=== PATIENT | male | born 1945 | race Caucasian/White ===

== ENCOUNTER 2022-08-18 14:05 | Inpatient (IN) ==
--- NOTE | 2022-08-18 14:11 | ED Triage Note ---
Date of Service August 18, 2022 History of Present Illness This patient was briefly evaluated while in triage. An abbreviated physical exam was performed. This patient is a 77-year-old Male who presents to the ED for evaluation of hyponatremia found on preoperative labs. Patient is planning to undergo urethro bhanu with Dr. Burt. He denies headache, confusion, chest pain, SOB, abdominal pain. Denies being on a diuretic. Physical Exam Constitutional: alert and oriented x3. no acute distress. HEENT: normocephalic, atraumatic. normal conjunctiva.PERRLA. EOM's grossly intact. Respiratory: lungs are clear to auscultation without wheezes, rhonchi, or rales bilaterally. equal chest rise. normal respiratory effort, no accessory muscle use. Cardiovascular: normal heart sounds without murmur. regular rate and rhythm. GI: abdomen is soft, nontender. No palpable masses. No rebound tenderness or guarding. MSK: moves all 4 extremities spontaneously Psych:appropriate mood and affect. Initial orders for labs and / or imaging were placed and patient was placed in the waiting area until a bed is available. Please see further documentation for the full ED course.
--- NOTE | 2022-08-18 14:53 | Emergency Department Note ---
Impression & Plan Acute hyponatremia ADMIT ED Provider Note HPI: The patient is a 77-year-old gentleman with history of urethral strictures, presents the emergency department with a chief complaint of abnormal outpatient lab work. Patient states he was obtaining lab work for upcoming procedure for direct visual internal urethrotomy procedure by Dr. Burt of urology, he states he was contacted today in regards to his lab work saying that his sodium was "critically low". On arrival here to the ED the patient states he overall feels well. He has had intermittent issues with urinary retention secondary to his underlying strictures. He states he was able to urinate today at about 10 AM without much problem. Patient is otherwise hemodynamically stable on arrival, he is afebrile on arrival. ROS: - Per HPI *Outpatient medications and allergy history reviewed. *Pertinent external medical records reviewed. PE: General: Alert HEENT: Normocephalic, trachea midline Eyes: Extraocular eye movement is intact, no scleral erythema Pulmonary: Clear to auscultation bilaterally, no wheezing Cardio: Regular rate and rhythm GI: Abdomen is soft to palpation : No suprapubic tenderness MSK: No evidence of trauma or malformation of the extremities, no edema Skin: No evidence of rash Neuro: Alert, no focal deficits Psychiatric: Cooperative hall monitor: (As interpreted by myself): - An order was placed for continuous cardiac monitoring - Patient was noted to be in sinus rhythm with a rate of 51 EKG: (As interpreted by myself): Rate: 51 Rhythm: Sinus bradycardia Intervals: Within normal limits ST changes: No ST elevation Time: 1508 Medical Decision Making: Patient presented to the emergency department with a chief complaint of abnormal outpatient lab work. Patient states his sodium was "critically low" and he was advised by his PCPs office to come to the emergency department to be assessed. Patient denies any history of hyponatremia. On arrival here in the ED the patient otherwise appears well, he is in no acute distress, states he has had some issues with urinary retention recently but otherwise denies any symptoms. IV was established and lab work obtained, patient was maintained on cardiac rehabilitation specialist, lab work shows no leukocytosis, hemoglobin is slightly low at 12.1 which is near the patient's baseline, platelet count is within normal limits, CMP does show evidence of hyponatremia at 125, chloride is also low at 94, no evidence of acute kidney injury, serum Osmo is low at 266. Patient was able to provide a urine sample here in the ED although he states it was slightly reduced in stream/volume. This does not show any evidence of infection. We will send for urinalysis. Patient does state he has a history of urethral strictures and is currently being assessed for outpatient surgery with urology service. On my reassessment the patient otherwise appears well, he is not noted to be on any diuretics, unclear source for his hyponatremia at this time and given this patient will be admitted to the hospital for further work-up/management. Patient is in agreement to this plan. [facility] hospitalist service was consulted for admission and the patient was placed for admission in stable condition. Consultants: [facility] Hospitalist service, Dr. Brian Disposition discussion held by myself with: Patient and at bedside Diagnosis: 1. Hyponatremia, acute 2. 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 Hx of gastroesophageal reflux (GERD) Hypertension Lower urinary tract symptoms Surgical History H/O umbilical hernia repair History of bladder surgery repair of "bladder neck" d/t blockage History of colonoscopy History of cystoscopy History of tonsillectomy History of tooth extraction Family History Mother Hypertension Father Heart disease Other No family history of adverse response to anesthesia Social History Smoking Status: Never smoker Second Hand Exposure: Yes (as a child); Hx Alcohol Use: Yes Alcohol type: beer Preferred Language: Greek 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: No Beliefs That Will Affect Care: None marital status: Current Living Situation: Spouse current occupational status: retired Feels Safe at Home: Yes Assistive Devices: Glasses Allergies Allergies Allergy/AdvReac Type Severity Reaction Status Date / Time No Known Allergies Allergy Verified 08/18/22 16:41 Home Meds Home Medications Medication Instructions Recorded Confirmed budesonide-formoterol HFA 160 2 puff inhalation BID 06/26/22 08/18/22 mcg-4.5 mcg/actuation aerosol inhaler (Symbicort) montelukast 10 mg tablet 10 mg PO QPM 06/26/22 08/18/22 albuterol sulfate 90 mcg/actuation 2 inh inhalation Q4H PRN sob 08/15/22 08/18/22 breath activated powder inhaler,sensor doxepin 25 mg capsule 25 mg PO HS 08/15/22 08/18/22 cephalexin 500 mg capsule 500 mg PO BID 08/18/22 08/18/22 diltiazem HCl 300 mg 300 mg PO DAILY 08/18/22 08/18/22 capsule,extended release 24 hr lisinopril 20 mg tablet 20 mg PO QAM 08/18/22 08/18/22 multivitamin 0 tab PO DAILY 08/18/22 08/18/22 psyllium 1 packet PO DAILY PRN Constipation 08/18/22 08/18/22 Results & Data (ED) Vital Signs Vital Signs - 24 hr 08/18/22 14:10 08/18/22 15:21 08/18/22 15:13 Temperature 36.4 C L Temperature Source Temporal Artery Scan Pulse Rate 63 52 L Pulse Rate [Right Apical] 52 L Pulse Rate from SpO2 Sensor Respiratory Rate 18 20 Respiratory Effort / Characteristics Non-Labored Spontaneous Non-Labored Spontaneous Respiratory Depth Normal Normal Respiratory Pattern Regular Regular Blood Pressure 125/67 Blood Pressure [Right Arm] 135/72 Blood Pressure Mean 86 Blood Pressure Mean [Right Arm] 93 Blood Pressure Position Sitting Pulse Oximetry 97 97 Oxygen Delivery Method Room Air Room Air Sepsis Recent Fever Within 48 Hours No Sepsis New/Unexplained Change in Mental Status N/A Sepsis Action Taken by Nursing No Action Required 08/18/22 16:00 08/18/22 17:04 08/18/22 18:00 Temperature Temperature Source Pulse Rate 49 L 49 L 48 L Pulse Rate [Right Apical] Pulse Rate from SpO2 Sensor 49 L Respiratory Rate 21 20 15 Respiratory Effort / Characteristics Respiratory Depth Respiratory Pattern Blood Pressure 144/74 H 158/75 H 144/78 H Blood Pressure [Right Arm] Blood Pressure Mean 97 102 100 Blood Pressure Mean [Right Arm] Blood Pressure Position Pulse Oximetry 99 100 100 Oxygen Delivery Method Room Air Room Air Room Air Sepsis Recent Fever Within 48 Hours Sepsis New/Unexplained Change in Mental Status Sepsis Action Taken by Nursing Laboratory Data 08/18/22 15:11 08/18/22 15:11 Lab Results 08/18/22 08/18/22 08/18/22 Range/Units 15:11 15:11 15:11 WBC 5.78 (4.8-10.8) K/ul RBC 3.76 L (4.70-6.10) M/uL Hgb 12.1 L (14.0-18.0) g/dl Hct 34.3 L (42.0-52.0) % MCV 91.2 (80.0-100.0) fL MCH 32.2 (25.0-34.0) pg MCHC 35.3 (32.0-36.0) g/dL RDW Std Deviation 41.1 (36.4-46.3) fL RDW Coeff of Tony 12.3 (11.5-14.5) % Plt Count 298 (130-400) K/uL MPV 8.8 L (9.4-12.4) fL Immature Gran % (Auto) 0.3 % Neut % (Auto) 68.1 % Lymph % (Auto) 20.8 % [place] % (Auto) 8.7 % Eos % (Auto) 1.4 % Baso % (Auto) 0.7 % Neut # (Auto) 3.94 (1.40-6.50) K/uL Lymph # (Auto) 1.20 (1.2-3.4) K/uL [place] # (Auto) 0.50 (0.11-0.59) K/uL Eos # (Auto) 0.08 (0-0.50) K/uL Baso # (Auto) 0.04 (0-0.2) K/uL Immature Gran # (Auto) 0.02 (0.01-0.20) K/uL Sodium 125 L (136-145) mmol/L Potassium 4.6 (3.5-5.1) mmol/L Chloride 94 L (98-107) mmol/L Carbon Dioxide 25 (21-32) mmol/L Anion Gap 6 (3-11) BUN 19 (6-23) mg/dl Creatinine 0.75 (0.6-1.4) mg/dl Est Cr Clr Drug Dosing 89.2 ml/min Est GFR ( Amer) 103.3 ml/min Est GFR (Non-Af Amer) 89.1 ml/min BUN/Creatinine Ratio 25.3 H (10-20) Glucose 99 (70-99(Fasting)) mg/dl Osmolality 266 L (280-300) mOsm/kg Calcium 9.3 (8.6-10.3) mg/dl Total Bilirubin 0.5 (0.2-1.0) mg/dl AST 19 (13-39) U/L ALT 11 (7-52) U/L Alkaline Phosphatase 58 (34-104) U/L Total Protein 6.7 (6.0-8.3) gm/dl Albumin 4.4 (3.4-5.0) gm/dl Globulin 2.3 L (2.5-4.0) gm/dl Albumin/Globulin Ratio 1.9 (0.9-2) Urine Color Urine Appearance (Clear) Urine pH (4.5-7.5) Ur Specific [place] (1.000-1.030) Urine Protein (Negative) Urine Glucose (UA) (Negative) Urine Ketones (Negative) Urine Blood (Negative) Urine Nitrite (Negative) Urine Bilirubin (Negative) Urine Urobilinogen (Negative) Ur Leukocyte Esterase (Negative) Urine Osmolality (500-800) mOsm/kg SARS-CoV-2, RNA, NAAT (NEGATIVE) 08/18/22 08/18/22 08/18/22 Range/Units 15:19 15:19 17:01 WBC (4.8-10.8) K/ul RBC (4.70-6.10) M/uL Hgb (14.0-18.0) g/dl Hct (42.0-52.0) % MCV (80.0-100.0) fL MCH (25.0-34.0) pg MCHC (32.0-36.0) g/dL RDW Std Deviation (36.4-46.3) fL RDW Coeff of Tony (11.5-14.5) % Plt Count (130-400) K/uL MPV (9.4-12.4) fL Immature Gran % (Auto) % Neut % (Auto) % Lymph % (Auto) % [place] % (Auto) % Eos % (Auto) % Baso % (Auto) % Neut # (Auto) (1.40-6.50) K/uL Lymph # (Auto) (1.2-3.4) K/uL [place] # (Auto) (0.11-0.59) K/uL Eos # (Auto) (0-0.50) K/uL Baso # (Auto) (0-0.2) K/uL Immature Gran # (Auto) (0.01-0.20) K/uL Sodium (136-145) mmol/L Potassium (3.5-5.1) mmol/L Chloride (98-107) mmol/L Carbon Dioxide (21-32) mmol/L Anion Gap (3-11) BUN (6-23) mg/dl Creatinine (0.6-1.4) mg/dl Est Cr Clr Drug Dosing ml/min Est GFR ( Amer) ml/min Est GFR (Non-Af Amer) ml/min BUN/Creatinine Ratio (10-20) Glucose (70-99(Fasting)) mg/dl Osmolality (280-300) mOsm/kg Calcium (8.6-10.3) mg/dl Total Bilirubin (0.2-1.0) mg/dl AST (13-39) U/L ALT (7-52) U/L Alkaline Phosphatase (34-104) U/L Total Protein (6.0-8.3) gm/dl Albumin (3.4-5.0) gm/dl Globulin (2.5-4.0) gm/dl Albumin/Globulin Ratio (0.9-2) Urine Color Yellow Urine Appearance Clear (Clear) Urine pH 7.0 (4.5-7.5) Ur Specific [place] 1.020 (1.000-1.030) Urine Protein Negative (Negative) Urine Glucose (UA) Negative (Negative) Urine Ketones Negative (Negative) Urine Blood Negative (Negative) Urine Nitrite Negative (Negative) Urine Bilirubin Negative (Negative) Urine Urobilinogen Negative (Negative) Ur Leukocyte Esterase Negative (Negative) Urine Osmolality 543 (500-800) mOsm/kg SARS-CoV-2, RNA, NAAT NEGATIVE (NEGATIVE) Discharge Plan Visit Data Chief Complaint: Abnormal Labs/Diagnostic Testing Stated Complaint: LOW SODIUM, REF FROM DR CROWLEY ED Provider: Blayne Quinonez Discharge Problem: Acute hyponatremia Forms Stand Alone Forms: My [facility] Prescriptions Prescriptions: No Action budesonide-formoterol [Symbicort] 160-4.5 mcg/actuation HFA aerosol inhaler 2 puff inhalation BID montelukast 10 mg tablet 10 mg PO QPM doxepin 25 mg Capsule 25 mg PO HS albuterol sulfate 90 mcg/actuation Aero Powdr Breath Act W/Sensor 2 inh INHALATION Q4H PRN (Reason: sob) multivitamin Tablet 0 tab PO DAILY Rx Instructions: Patient states that due to his potassium being high he takes 1 tablet by mouth a couple times a week. lisinopril 20 mg tablet 20 mg PO QAM diltiazem HCl 300 mg capsule,extended release 24hr 300 mg PO DAILY cephalexin 500 mg capsule 500 mg PO BID Metamucil Packet 1 packet PO DAILY PRN (Reason: Constipation) Rx Instructions: mix into at least 8 oz of water or juice before administering Referrals Referrals: Aundrea Crowley MD [Primary Care Provider] -
[2022-08-18 15:53] LABS: Basophils # (auto) 0.04 K/uL (0-0.2); Basophils % (auto) 0.7 %; Eosinophils # (auto) 0.08 K/uL (0-0.50); Eosinophils % (auto) 1.4 %; Hematocrit (blood only) 34.3 % (42.0-52.0); Hemoglobin 12.1 g/dl (14.0-18.0); Immature Granulocytes # (auto) 0.02 K/uL (0.01-0.20); Immature Granulocytes % (auto) 0.3 %; Lymphocytes % (auto) 20.8 %; Mean Corpuscular Hemoglobin 32.2 pg (25.0-34.0); Mean Corpuscular Hgb Conc 35.3 g/dL (32.0-36.0); Mean Corpuscular Volume 91.2 fL (80.0-100.0); Mean Platelet Volume 8.8 fL (9.4-12.4); Monocytes % (auto) 8.7 %; Neutrophils # (auto) 3.94 K/uL (1.40-6.50); Neutrophils % (auto) 68.1 %; Platelet Count 298 K/uL (130-400); RDW Coefficient of Variation 12.3 % (11.5-14.5); RDW Standard Deviation 41.1 fL (36.4-46.3); Red Blood Count 3.76 M/uL (4.70-6.10); White Blood Count 5.78 K/ul (4.8-10.8)
[2022-08-18 16:06] LABS: Albumin Globulin Ratio 1.9 (0.9-2); Albumin Level 4.4 gm/dl (3.4-5.0); BUN Creatinine Ratio 25.3 (10-20); Bilirubin,Total 0.5 mg/dl (0.2-1.0); Calcium 9.3 mg/dl (8.6-10.3); Creatinine Clr Calc Pharmacy 89.2 ml/min; Est GFR (African American) 103.3 ml/min; Est GFR (Non-African American) 89.1 ml/min; Globulin 2.3 gm/dl (2.5-4.0); Potassium 4.6 mmol/L (3.5-5.1); Total Protein 6.7 gm/dl (6.0-8.3)
[2022-08-18 16:06] LABS: Appearance Urine Clear (Clear); Bilirubin Urine Negative (Negative); Blood Urine Negative (Negative); Color Urine Yellow; Glucose Urine UA Negative (Negative); Ketones Urine Negative (Negative); Leukocyte Esterase Urine Negative (Negative); Nitrite Urine Negative (Negative); Protein Urine Negative (Negative); Urobilinogen Urine Negative (Negative)
--- NOTE | 2022-08-18 18:34 | History & Physical Report ---
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 (Na level was 133 in 05/30/22) Urine sodium normal and serum osmolarity low Will check Urine Na Will place on fluid restriction with 1.5 L daily Will consult nephrology Continue monitor BMP Urethral stricture: Bladder neck contracture: Schedule for DVIU procedure on 08/[address] Burt Will complete 2 more days course of Keflex that was started by urology. Bradycardia Asymptomatic Currently on Cardizem 300mg If bradycardia worsening, might consider to decrease cardizem dose Continue monitor closely HTN Continue cardizem and Lisinopril Continue monitor BMP Constipation Continue Metamucil prn Asthma Continue Symbicort DVT px on lovenox subq Code status full code History of Present Illness Chief Complaint: Hyponatremia Primary Care Provider: Aundrea Crowley MD 77 male with past medical history of SIADH, hypertension, asthma, ureteral stri cture, constipation, essential tremor was sent to the ED due to abnormal lab for low sodium. Pt said that he had a call from his doctor for Na level 125 that was drawn on 08/15. Pt said that he was told to drink alot of water to help him urinate. He said back in May his sodium was 133 and he was told to limit his fluid intake. he said that he went from fluid restriction to drink excessive amount of water. said that he had history of low sodium, but his Na never dropped that low. He said that he does not have any symptoms that he feels fine. He said that he is scheduled for urology procedure on 08/[address] Burt for DVIU (direct visual urethrotomy) procedure. He said that he was starting on Keflex on 08/13 by the urology to complete 7 days course. Denues any chest pain, palpitation, dizziness and SOB. Allergies Allergy/AdvReac Type Severity Reaction Status Date / Time No Known Allergies Allergy Verified 08/18/22 16:41 Home Medications Medication Instructions Recorded Confirmed Type budesonide-formoterol HFA 160 2 puff inhalation BID 06/26/22 08/18/22 History mcg-4.5 mcg/actuation aerosol inhaler (Symbicort) montelukast 10 mg tablet 10 mg PO QPM 06/26/22 08/18/22 History albuterol sulfate 90 mcg/actuation 2 inh inhalation Q4H PRN sob 08/15/22 08/18/22 History breath activated powder inhaler,sensor doxepin 25 mg capsule 25 mg PO HS 08/15/22 08/18/22 History cephalexin 500 mg capsule 500 mg PO BID 08/18/22 08/18/22 History diltiazem HCl 300 mg 300 mg PO DAILY 08/18/22 08/18/22 History capsule,extended release 24 hr lisinopril 20 mg tablet 20 mg PO QAM 08/18/22 08/18/22 History multivitamin 0 tab PO DAILY 08/18/22 08/18/22 History psyllium 1 packet PO DAILY PRN Constipation 08/18/22 08/18/22 History Past Med/Surg History Medical History (Updated 08/19/22 @ 17:52 by Becky Meza DO) Anxiety "fear of medical testing" Asthma has not used rescue inhaler for a while>daily inhaler controlling Bradycardia Chronic constipation Hearing deficit History of skin cancer 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 Hx of gastroesophageal reflux (GERD) Hypertension Hyponatremia Lower urinary tract symptoms Surgical History H/O umbilical hernia repair History of bladder surgery repair of "bladder neck" d/t blockage History of colonoscopy History of cystoscopy History of tonsillectomy History of tooth extraction Family History Mother Hypertension Father Heart disease Other No family history of adverse response to anesthesia Social History Smoking Status: Never smoker Second Hand Exposure: Yes (as a child); Hx Alcohol Use: Yes Alcohol type: beer Hx Substance Use: No Preferred Language: Barbadian Communication Ability: Effective Air Quality Specialist Required: No Beliefs That Will Affect Care: None marital status: Current Living Situation: Spouse Current Living Situation Comment: Home with current occupational status: retired Feels Safe at Home: Yes Assistive Devices: None Review of Systems Review of Systems: All systems reviewed & are unremarkable except as noted in HPI & below Physical Exam Physical Exam: General- No acute distress Head- atraumatic Eyes- PERRL, EOMI, ENT- oropharynx clear Neck- supple, no JVD Lungs- clear to auscultation Heart- regular rhythm; no murmur Abdomen- normal bowel sounds, soft, nontender Extremities- +edema around both ankle L>R Neuro- alert, oriented x 3; PERRL, EOMI; no facial palsy; no dysarthria Skin- warm & dry Results & Data Results & Data Vital Signs (Past 12 Hours) Vital Signs Temp Pulse Pulse Resp BP BP Pulse Ox 08/18/22 18:00 48 L 15 144/78 H 100 08/18/22 17:04 49 L 20 158/75 H 100 08/18/22 16:00 49 L 21 144/74 H 99 08/18/22 15:13 52 L 08/18/22 15:21 52 L 20 135/72 97 08/18/22 14:10 36.4 C L 63 18 125/67 97 O2 Del Method 08/18/22 18:00 Room Air 08/18/22 17:04 Room Air 08/18/22 16:00 Room Air 08/18/22 15:13 08/18/22 15:21 Room Air 08/18/22 14:10 Room Air Diagnostic Findings Laboratory Results WBC 5.78 K/ul (4.8-10.8) 08/18/22 15:11 RBC 3.76 M/uL (4.70-6.10) L 08/18/22 15:11 Hgb 12.1 g/dl (14.0-18.0) L 08/18/22 15:11 Hct 34.3 % (42.0-52.0) L 08/18/22 15:11 MCV 91.2 fL (80.0-100.0) 08/18/22 15:11 MCH 32.2 pg (25.0-34.0) 08/18/22 15:11 MCHC 35.3 g/dL (32.0-36.0) 08/18/22 15:11 RDW Std Deviation 41.1 fL (36.4-46.3) 08/18/22 15:11 RDW Coeff of Tony 12.3 % (11.5-14.5) 08/18/22 15:11 Plt Count 298 K/uL (130-400) 08/18/22 15:11 MPV 8.8 fL (9.4-12.4) L 08/18/22 15:11 Immature Gran % (Auto) 0.3 % 08/18/22 15:11 Neut % (Auto) 68.1 % 08/18/22 15:11 Lymph % (Auto) 20.8 % 08/18/22 15:11 [place] % (Auto) 8.7 % 08/18/22 15:11 Eos % (Auto) 1.4 % 08/18/22 15:11 Baso % (Auto) 0.7 % 08/18/22 15:11 Neut # (Auto) 3.94 K/uL (1.40-6.50) 08/18/22 15:11 Lymph # (Auto) 1.20 K/uL (1.2-3.4) 08/18/22 15:11 [place] # (Auto) 0.50 K/uL (0.11-0.59) 08/18/22 15:11 Eos # (Auto) 0.08 K/uL (0-0.50) 08/18/22 15:11 Baso # (Auto) 0.04 K/uL (0-0.2) 08/18/22 15:11 Immature Gran # (Auto) 0.02 K/uL (0.01-0.20) 08/18/22 15:11 Sodium 125 mmol/L (136-145) L 08/18/22 15:11 Potassium 4.6 mmol/L (3.5-5.1) 08/18/22 15:11 Chloride 94 mmol/L (98-107) L 08/18/22 15:11 Carbon Dioxide 25 mmol/L (21-32) 08/18/22 15:11 Anion Gap 6 (3-11) 08/18/22 15:11 BUN 19 mg/dl (6-23) 08/18/22 15:11 Creatinine 0.75 mg/dl (0.6-1.4) 08/18/22 15:11 Est Cr Clr Drug Dosing 89.2 ml/min 08/18/22 15:11 Est GFR ( Amer) 103.3 ml/min 08/18/22 15:11 Est GFR (Non-Af Amer) 89.1 ml/min 08/18/22 15:11 BUN/Creatinine Ratio 25.3 (10-20) H 08/18/22 15:11 Glucose 99 mg/dl (70-99(Fasting)) 08/18/22 15:11 Osmolality 266 mOsm/kg (280-300) L 08/18/22 15:11 Calcium 9.3 mg/dl (8.6-10.3) 08/18/22 15:11 Total Bilirubin 0.5 mg/dl (0.2-1.0) 08/18/22 15:11 AST 19 U/L (13-39) 08/18/22 15:11 ALT 11 U/L (7-52) 08/18/22 15:11 Alkaline Phosphatase 58 U/L (34-104) 08/18/22 15:11 Total Protein 6.7 gm/dl (6.0-8.3) 08/18/22 15:11 Albumin 4.4 gm/dl (3.4-5.0) 08/18/22 15:11 Globulin 2.3 gm/dl (2.5-4.0) L 08/18/22 15:11 Albumin/Globulin Ratio 1.9 (0.9-2) 08/18/22 15:11 Urine Color Yellow 08/18/22 15:19 Urine Appearance Clear (Clear) 08/18/22 15:19 Urine pH 7.0 (4.5-7.5) 08/18/22 15:19 Ur Specific [place] 1.020 (1.000-1.030) 08/18/22 15:19 Urine Protein Negative (Negative) 08/18/22 15:19 Urine Glucose (UA) Negative (Negative) 08/18/22 15:19 Urine Ketones Negative (Negative) 08/18/22 15:19 Urine Blood Negative (Negative) 08/18/22 15:19 Urine Nitrite Negative (Negative) 08/18/22 15:19 Urine Bilirubin Negative (Negative) 08/18/22 15:19 Urine Urobilinogen Negative (Negative) 08/18/22 15:19 Ur Leukocyte Esterase Negative (Negative) 08/18/22 15:19 Urine Osmolality 543 mOsm/kg (500-800) 08/18/22 15:19 SARS-CoV-2, RNA, NAAT NEGATIVE (NEGATIVE) 08/18/22 17:01
[2022-08-18] MEDS ORDERED: DOXEPIN HCL 25 MG CAPSULE PO SCH (21:00)
[2022-08-18] MEDS ORDERED: ALBUTEROL HFA 8 GM INHALER INH PRN (21:07)
[2022-08-18] MEDS: cephALEXin 500 MG CAP PO SCH (21:59)
[2022-08-18] MEDS: MONTELUKAST SODIUM 10 MG TABLET PO SCH (22:00)
[2022-08-19] MEDS: MULTIVITAMIN TAB PO SCH (07:56)
[2022-08-19] MEDS: cephALEXin 500 MG CAP PO SCH ×2 (07:56→20:05)
[2022-08-19] MEDS: lisinopril 20 MG TAB PO SCH (07:56)
[2022-08-19] MEDS: dilTIAZem HCL 300 MG CAPCR PO SCH (07:57)
[2022-08-19] MEDS: FLUTICASONE/VILANTEROL 200/25MCG 14 PUFFS/INHALER INH SCH (07:57)
[2022-08-19] MEDS: ENOXAPARIN INJ 40 MG/0.4 ML SYR SQ SCH (07:57)
--- NOTE | 2022-08-19 08:00 | Nephrology Consultation ---
Date of Consultation August 19, 2022 Assessment & Plan (1) Hyponatremia: worsening of chronic hyponatremia w/ presenting sodium 08/18 1500 of 125, stable > 72 hrs. -await am labs >>sNa 130, K 4.6 -continue FR 1.5L -target sNa for this am is about 129-130 >> on target >trial of lasix 10 mg q 48 hrs w/ goal of normalizing sNa as OP IF PATIENT is for DISCHARGE TODAY, recommend -recheck bmp this afternoon >> sNa 129 -d/c home on FR 50 oz daily -lasix 10 mg every 48 hrs -recheck bmp, serum osms, urine osms, urine sodium on 08/22 or 08/25 -hospital d/c appt w/ me in 2 wks >>note below re diltiazem (2) Bradycardia: has not had diltiazem once this admission and HR about 50 uniformly -consider OP cardiology eval re tachy/jerry versus bradycardia -consider holding diltiazem at discharge History of Present Illness Reason for Consultation: hyponatremia Requesting Physician: Dr Brian Attending Physician: Jodie Brian MD History of Present Illness 77 y/o M whom I'm asked to see for hyponatremia was sent to hospital for admission yesterday after OP labs showed sodium 125. PMH includes chronic hyponatremia/SIADH, hypertension, asthma, urethral stricture, constipation, essential tremor, hx of tachycardia. Pt has direct visual urethrotomy scheduled for 08/21 w/ Dr Burt and had been told that if he drank lots of water this would help him urinate well until then. Accordingly he went from a fluid limit of about 64 oz daily to aggressive fluid intake. His serum sodium on 08/15 was 125, same on presentation yesterday 1500. Serum osms 266, urine osms 543, Chris 52. There are not many data points in [employer] or [employer] but sNa x 2 in May 2022 in [place] is 133, 132. Sodium improved to 130 today. HR has been consistently about 50. On evaluation he feels well: denies n/v, worse po intake recently; no edema, no exertional dyspnea or cough; no change in chronic voiding challenges. no confusion. He and his moved here last fall from [place]: he used to hike long distances and describes himself as a big water drinker. used to also have "a few beers at night before dinner" per his who is bedside though not recently. Hyponatremia was apparently diagnosed this spring and attributed to SIADH. he tells me that he considers the 64 oz daily fluid limit imposed at that time to be severe/extreme. He did fall once in the past year, tripped on a trail. Allergies Allergy/AdvReac Type Severity Reaction Status Date / Time No Known Allergies Allergy Verified 08/18/22 16:41 Home Medications Medication Instructions Recorded Confirmed Type budesonide-formoterol HFA 160 2 puff inhalation BID 06/26/22 08/18/22 History mcg-4.5 mcg/actuation aerosol inhaler (Symbicort) montelukast 10 mg tablet 10 mg PO QPM 06/26/22 08/18/22 History albuterol sulfate 90 mcg/actuation 2 inh inhalation Q4H PRN sob 08/15/22 08/18/22 History breath activated powder inhaler,sensor doxepin 25 mg capsule 25 mg PO HS 08/15/22 08/18/22 History cephalexin 500 mg capsule 500 mg PO BID 08/18/22 08/18/22 History diltiazem HCl 300 mg 300 mg PO DAILY 08/18/22 08/18/22 History capsule,extended release 24 hr lisinopril 20 mg tablet 20 mg PO QAM 08/18/22 08/18/22 History multivitamin 0 tab PO DAILY 08/18/22 08/18/22 History psyllium 1 packet PO DAILY PRN Constipation 08/18/22 08/18/22 History Patient History Medical History Anxiety "fear of medical testing" Asthma has not used rescue inhaler for a while>daily inhaler controlling Bradycardia Chronic constipation Hearing deficit History of skin cancer History of tachycardia no mold blower Hx of gastroesophageal reflux (GERD) Hypertension Hyponatremia Lower urinary tract symptoms Surgical History H/O umbilical hernia repair History of bladder surgery repair of "bladder neck" d/t blockage History of colonoscopy History of cystoscopy History of tonsillectomy History of tooth extraction Family History Mother Hypertension Father Heart disease Other No family history of adverse response to anesthesia Social History Smoking Status: Never smoker Second Hand Exposure: Yes (as a child); Hx Alcohol Use: Yes Alcohol type: beer Hx Substance Use: No Preferred Language: Spanish Communication Ability: Effective [employer] Reading Teacher Required: No Beliefs That Will Affect Care: None marital status: Current Living Situation: Spouse Current Living Situation Comment: Home with current occupational status: retired Feels Safe at Home: Yes Assistive Devices: None Review of Systems Review of Systems: All systems reviewed & are unremarkable except as noted in HPI & below Physical Exam Constitutional: well developed, well nourished and cooperative; no acute distress Eyes: EOM intact bilaterally ENMT: Ears: no external ear abnormality Nose: no external nose abnormality Mouth: oral mucous membranes not dry jaw tremor Neck: no nuchal rigidity Respiratory: normal respiratory effort Auscultation: + diminished lung sounds Cardiovascular: RRR, no murmur, no edema Gastrointestinal (Abdomen): Inspection/Auscultation: normal bowel sounds Percussion/Palpation: abdomen soft; abdomen nontender Musculoskeletal: Extremities: strength 5/5 throughout Skin: no rashes, warm and dry Neurologic: ijmenez, fluent speech, no tremor Psychiatric: Orientation: alert and oriented x 3 Speech: normal rate/rhythm/volume of speech Results & Data Vital Signs (Past 12 Hours) Vital Signs Temp Pulse Pulse Resp BP BP Pulse Ox 08/19/22 07:24 36.6 C 49 L 20 121/68 98 08/19/22 07:00 45 L 08/19/22 04:42 67 08/19/22 03:30 36.7 C 92 H 18 125/63 95 08/18/22 23:12 55 L 08/18/22 23:01 36.4 C L 52 L 18 152/78 H 99 08/18/22 22:20 36.6 C 18 167/79 H 97 08/18/22 21:41 51 L 08/18/22 20:40 36.6 C 50 L 18 167/79 H 97 08/18/22 20:17 08/18/22 20:00 49 L 17 146/74 H 100 O2 Del Method 08/19/22 07:24 Room Air 08/19/22 07:00 08/19/22 04:42 08/19/22 03:30 Room Air 08/18/22 23:12 08/18/22 23:01 Room Air 08/18/22 22:20 Room Air 08/18/22 21:41 08/18/22 20:40 Room Air 08/18/22 20:17 Room Air 08/18/22 20:00 Room Air Laboratory Results 08/19/22 07:27 08/19/22 07:27 Diagnostic Findings CXR > osteopenia, no active disease
[2022-08-19 08:17] LABS: Hematocrit (blood only) 33.5 % (42.0-52.0); Hemoglobin 11.6 g/dl (14.0-18.0); Mean Corpuscular Hemoglobin 32.1 pg (25.0-34.0); Mean Corpuscular Hgb Conc 34.6 g/dL (32.0-36.0); Mean Corpuscular Volume 92.8 fL (80.0-100.0); Mean Platelet Volume 8.6 fL (9.4-12.4); Platelet Count 269 K/uL (130-400); RDW Coefficient of Variation 12.3 % (11.5-14.5); Red Blood Count 3.61 M/uL (4.70-6.10); White Blood Count 4.08 K/ul (4.8-10.8)
[2022-08-19 08:31] LABS: BUN Creatinine Ratio 23.5 (10-20); Calcium 8.9 mg/dl (8.6-10.3); Est GFR (African American) 100.1 ml/min; Est GFR (Non-African American) 86.3 ml/min; Magnesium 2.3 mg/dl (1.7-2.4); Potassium 4.6 mmol/L (3.5-5.1)
--- NOTE | 2022-08-19 14:14 | Hospitalist Progress Note ---
Date of Service August 19, 2022 Assessment & Plan (1) Acute hyponatremia: Plan: Pt was sent to the ED due to abnormal lab for low Na (125) possible related to polydipsia vs SIADH He was placed on a fluid restriction with improvement. Nephrology consulted and will give one dose Lasix this evening. Repeat BMP in am. (2) Bladder neck contracture: Plan: known Urethral stricture: Bladder neck contracture: Schedule for DVIU procedure on 08/[address] Burt Will complete 2 more days course of Keflex that was started by urology. Urinary retention may also be caused somewhat by doxepin for insomnia. Will wean this down. Would hold tonight and order 10mg PO qHS dose for two weeks, then stop (3) Bradycardia: Plan: would indefinitely stop diltiazem 2/2 bradycardia, agree with nephrology. Consider outpatient event monitor to evaluate for tachy jerry once off diltiazem. (4) Insomnia: Plan: wean doxepin over two weeks. (5) Chronic constipation: Plan: possibly a side effect of doxepin, supportive care and evaluate any changes in this once off the medication. Lovenox Full Code to home in am. Becky Meza DO [facility] Hospitalist Admission and Anticipated Discharge Date Admission Date: August 18, 2022 Subjective 77-year-old man with a history of chronic bladder outlet obstruction recently was seen by urology and told to increase his water intake Reports has been drinking "excessive" amounts of water and was brought in for a sodium of 125 Today it is 130. Patient feels well and has no symptoms. Bladder scan today reveals slightly north of 200 which is where he has been running He has a urology procedure planned for August 21. is at bedside and we discussed the assessment and plan I checked with Dr. Esposito who has a plan to give him Lasix this evening. Review of Systems Review of Systems: Of systems was otherwise negative except as indicated above Physical Exam Physical Exam: CONSTITUTIONAL: WNWD, vitals as above, generally well-appearing, NAD EYES: normal conjunctivae, no scleral icterus ENT: external ear and nose normal, MMM NECK: trachea midline RESPIRATORY: clear to auscultation bilaterally, no crackles, rales or wheezes, normal respiratory effort CARDIOVASCULAR: regular rate and rhythm, S1 and 2 heard without murmurs, gallops or rubs, no JVD, no peripheral edema, CHEST: inspection of chest was normal GASTROINTESTINAL: soft, nontender, ND, no guarding MUSCULOSKELETAL: strength 5/5 throughout, head is normocephalic and atraumatic, SKIN: warm and dry, no rashes NEUROLOGIC: CN 2-12 grossly intact, no sensory deficit, normal cognition, normal speech, no tremor PSYCHIATRIC: alert cooperative and oriented to person, place and time. Results & Data Results & Data Vital Signs (Past 12 Hours) Vital Signs Temp Pulse Pulse Resp BP Pulse Ox O2 Del Method 08/19/22 11:08 36.4 C L 55 L 17 139/76 98 Room Air 08/19/22 09:36 Room Air 08/19/22 07:24 36.6 C 49 L 20 121/68 98 Room Air 08/19/22 07:00 45 L 08/19/22 04:42 67 08/19/22 03:30 36.7 C 92 H 18 125/63 95 Room Air Laboratory Results Short CBC 08/18/22 08/19/22 Range/Units 15:11 07:27 WBC 5.78 4.08 L (4.8-10.8) K/ul Hgb 12.1 L 11.6 L (14.0-18.0) g/dl Hct 34.3 L 33.5 L (42.0-52.0) % Plt Count 298 269 (130-400) K/uL BMP 08/18/22 08/19/22 15:11 07:27 Sodium 125 L 130 L Potassium 4.6 4.6 Chloride 94 L 97 L Carbon Dioxide 25 29 BUN 19 19 Creatinine 0.75 0.81 Glucose 99 92 Calcium 9.3 8.9 Liver Function 08/18/22 Range/Units 15:11 Total Bilirubin 0.5 (0.2-1.0) mg/dl AST 19 (13-39) U/L ALT 11 (7-52) U/L Alkaline Phosphatase 58 (34-104) U/L Albumin 4.4 (3.4-5.0) gm/dl Urine 08/18/22 Range/Units 15:19 Urine Color Yellow Urine Appearance Clear (Clear) Urine pH 7.0 (4.5-7.5) Ur Specific [place] 1.020 (1.000-1.030) Urine Protein Negative (Negative) Urine Glucose (UA) Negative (Negative) Medications Administered Current Inpatient Medications Albuterol (Albuterol Hfa 8 Gm Inhaler) 2 puffs INH Q4R PRN PRN Reason: Shortness Of Breath Stop: 09/17/22 21:06 Cephalexin HCl (Cephalexin 500 Mg Cap) 500 mg PO BID [facility]; Protocol Stop: 08/20/22 20:59 Last Admin: 08/19/22 07:56 Dose: 500 mg Diltiazem HCl (Diltiazem Hcl 300 Mg Capcr) 300 mg PO DAILY [facility] Stop: 09/18/22 08:59 Last Admin: 08/19/22 07:57 Dose: Not Given Doxepin HCl (Doxepin Hcl 25 Mg Capsule) 25 mg PO HS [facility] Stop: 09/17/22 20:59 Last Admin: 08/18/22 22:00 Dose: 25 mg Enoxaparin Sodium (Enoxaparin Inj 40 Mg/0.4 Ml Syr) 40 mg SQ QAM [facility] Stop: 09/18/22 08:59 Last Admin: 08/19/22 07:57 Dose: 40 mg Fluticasone/Vilanterol (Fluticasone/Vilanterol 200/25mcg 14 Puffs/Inhaler) 1 puffs INH DAILY [facility]; Protocol Stop: 09/18/22 08:59 Last Admin: 08/19/22 07:57 Dose: 1 puffs Lisinopril (Lisinopril 20 Mg Tab) 20 mg PO QAM [facility] Stop: 09/18/22 08:59 Last Admin: 08/19/22 07:56 Dose: 20 mg Montelukast Sodium (Montelukast Sodium 10 Mg Tablet) 10 mg PO QPM [facility] Stop: 09/17/22 20:59 Last Admin: 08/18/22 22:00 Dose: 10 mg Multivitamins (Multivitamin Tab) 1 tab PO QAM [facility] Stop: 09/18/22 08:59 Last Admin: 08/19/22 07:56 Dose: 1 tab
[2022-08-19 16:57] LABS: BUN Creatinine Ratio 28.1 (10-20); Creatinine Clr Calc Pharmacy 76.4 ml/min; Est GFR (African American) 96.3 ml/min; Est GFR (Non-African American) 83.1 ml/min; Potassium 4.6 mmol/L (3.5-5.1)
[2022-08-19] MEDS ORDERED: FUROSEMIDE 20 MG TAB PO ONE (17:38)
[2022-08-19] MEDS: MONTELUKAST SODIUM 10 MG TABLET PO SCH (20:07)
[2022-08-19] MEDS ORDERED: DOXEPIN HCL 10 MG CAPSULE PO SCH (21:00)
[2022-08-19] MEDS: DOCUSATE SODIUM/SENNA 50/8.6MG TAB PO SCH (22:25)
--- NOTE | 2022-08-20 05:53 | Electrocardiogram Report ---
Test Reason : Blood Pressure : / mmHG Vent. Rate : 051 BPM Atrial Rate : 051 BPM P-R Int : 170 ms QRS Dur : 100 ms QT Int : 438 ms P-R-T Axes : 053 -08 041 degrees QTc Int : 403 ms Sinus bradycardia Otherwise normal ECG When compared with ECG of 15-AUG-2022 14:35, No significant change was found Confirmed by Aung Funk ([id number]) on 08/20/2022 5:52:39 AM Referred By: Confirmed By:Aung Funk
[2022-08-20 07:56] LABS: Calcium 8.8 mg/dl (8.6-10.3); Potassium 4.2 mmol/L (3.5-5.1)
[2022-08-20 08:02] LABS: BUN Creatinine Ratio 27.6 (10-20); Creatinine Clr Calc Pharmacy 78.3 ml/min; Est GFR (African American) 97.2 ml/min; Est GFR (Non-African American) 83.8 ml/min
[2022-08-20] MEDS: MULTIVITAMIN TAB PO SCH (08:58)
[2022-08-20] MEDS: DOCUSATE SODIUM/SENNA 50/8.6MG TAB PO SCH (08:59)
[2022-08-20] MEDS: lisinopril 20 MG TAB PO SCH (08:59)
[2022-08-20] MEDS: dilTIAZem HCL 300 MG CAPCR PO SCH (08:59)
[2022-08-20] MEDS: ENOXAPARIN INJ 40 MG/0.4 ML SYR SQ SCH (09:00)
[2022-08-20] MEDS: cephALEXin 500 MG CAP PO SCH (09:00)
[2022-08-20] MEDS: FLUTICASONE/VILANTEROL 200/25MCG 14 PUFFS/INHALER INH SCH (09:00)
--- NOTE | 2022-08-20 09:43 | Communication Note ---
Date of Service: August 20, 2022 Pt for d/c today possibly before I can evaluate him in person. Labs/VS/ meds reviewed; care d/w Dr Andrews UPDATED NEPHRO D/C RECOMMENDATIONS -d/c home on FR 50 oz daily -lasix 10 mg every 48 hrs (BUT PLS DOSE TODAY) -recheck bmp, serum osms, urine osms, urine sodium on 08/22 or 08/25 to be ordered by nephro RN in consultation w/ d/c materials planner -hospital d/c appt w/ me in 2 wks -consider OP cardiology eval re tachy/jerry versus bradycardia >>diltiazem held yesterday d/t asymptomatic bradycardia (HR about 50 consistently); given today w/ HR 63 >> consider lower dose diltiazem at d/c pending cardiology eval
[2022-08-20] MEDS ORDERED: FUROSEMIDE 20 MG TAB PO ONE (12:00)
--- NOTE | 2022-08-20 12:20 | Discharge Summary ---
Date of Service August 20, 2022 Admission HPI Per Admitting Provider 77 male with past medical history of SIADH, hypertension, asthma, ureteral stricture, constipation, essential tremor was sent to the ED due to abnormal lab for low sodium. Pt said that he had a call from his doctor for Na level 125 that was drawn on 08/15. Pt said that he was told to drink alot of water to help him urinate. He said back in May his sodium was 133 and he was told to limit his fluid intake. he said that he went from fluid restriction to drink excessive amount of water. said that he had history of low sodium, but his Na never dropped that low. He said that he does not have any symptoms that he feels fine. He said that he is scheduled for urology procedure on 08/[address] Burt for DVIU (direct visual urethrotomy) procedure. He said that he was starting on Keflex on 08/13 by the urology to complete 7 days course. Denues any chest pain, palpitation, dizziness and SOB. Admission Exam Per Admitting Provider General- No acute distress Head- atraumatic Eyes- PERRL, EOMI, ENT- oropharynx clear Neck- supple, no JVD Lungs- clear to auscultation Heart- regular rhythm; no murmur Abdomen- normal bowel sounds, soft, nontender Extremities- +edema around both ankle L>R Neuro- alert, oriented x 3; PERRL, EOMI; no facial palsy; no dysarthria Skin- warm & dry Principal Diagnosis Hyponatremia Discharge Exam CONSTITUTIONAL: WNWD, NAD EYES: normal conjunctivae, ENT: external ear and nose normal, MMM NECK: trachea midline, supple RESPIRATORY: clear to auscultation bilaterally, no crackles, rales or wheezes, normal respiratory effort CARDIOVASCULAR: regular rate and rhythm, S1 and 2 heard without murmurs, gallops or rubs CHEST: inspection of chest was normal GASTROINTESTINAL: soft, nontender, ND, no guarding MUSCULOSKELETAL: head is normocephalic and atraumatic,moves extremities SKIN: warm and dry, no rashes NEUROLOGIC: awake, alert, no sensory deficit, normal cognition, normal speech, no tremor, moves extremities PSYCHIATRIC: alert cooperative and oriented to person, place and time. Discharge Data Allergies Allergy/AdvReac Type Severity Reaction Status Date / Time No Known Allergies Allergy Verified 08/18/22 16:41 Consultations 08/18/22 17:07 ED Decision to Admit Stat 08/18/22 18:24 Consult Nephrology Stat 08/18/22 20:58 Consult Nephrology Routine Hospital Course (1) Acute hyponatremia: Pt was sent to the ED due to abnormal lab for low Na (125) possible related to SIADH He has been drinking excessive amount of water Na dropped to 125. (Na level was 133 in 05/30/22) Urine sodium normal and serum osmolarity low Nephrology consulted fluid restriction with 1.5 L daily UPDATED NEPHRO D/C RECOMMENDATIONS -d/c home on FR 50 oz daily -lasix 10 mg every 48 hrs (BUT PLS DOSE TODAY) -recheck bmp, serum osms, urine osms, urine sodium on 08/22 or 08/25 to be ordered by nephro RN in consultation w/ d/c systems requirements planner -hospital d/c appt w/ Dr. Flores in 2 wks -consider OP cardiology eval re tachy/jerry versus bradycardia >>diltiazem held yesterday d/t asymptomatic bradycardia (HR about 50 consistently); given today w/ HR 63 >> consider lower dose diltiazem at d/c pending cardiology eval Urethral stricture: Bladder neck contracture: Schedule for DVIU procedure on 08/[address] Burt complete course of Keflex that was started by urology. Bradycardia Asymptomatic Currently on Cardizem 300mg -> decreased to 180 on discharge - follow up w/ PCP and/ or cardiology as outpt HTN Continue cardizem and Lisinopril (as above) Continue monitor BMP Constipation Continue Metamucil prn Asthma Continue Symbicort Total Time Total Time Spent Total Time Spent (In Minutes): 40 Discharge Plan Discharge Items Patient Disposition: Home - Self-Care Reason For Visit: HYPONATREMIA Discharge Diagnosis: Hyponatremia Activity: Per Instructions section Non-emergency contact: Primary Care Provider and Urologist Call non-emergency contact if: you have any medication questions and your symptoms worsen Follow-up/Referrals: Aure Flores MD, PhD [Physician] - (Date & Time 09/17/2022 1:00 PM Provider Aure Flores MD Department Nephrology, [facility] ) Aundrea Crowley MD [Primary Care Provider] - (Date & Time 08/26/2022 10:20 AM Provider Aundrea Crowley MD Department General Internal Medicine [facility] ) Diet: Regular Fluids: 1500ml (6 cups) Diet Comment: Fluid restriction 50 oz / day Addtl Attending Provider Instructions: Follow-up with primary care doctor, and airport control operator. Follow up with primary care physician was scheduled for you for 08/26/2022. Follow-up with airport control operator, Dr. Flores in 2 weeks. The appointment was scheduled for you for September 17. You will need to get blood work done, to check on your sodium levels on September 01, and August 25. Continue fluid restriction of 50 ounces a day of fluid. Take Lasix 10 mg every 48 hours. Your diltiazem dose was decreased to 180 mg daily. Please discuss this with your primary care doctor and/your director of entertainment. Follow-up with your urologist, as previously scheduled. Pending Studies at Discharge: No Stand-Alone Forms: My [facility] [employer], Smoking Cessation Medications and DC Order Prescriptions: New diltiazem HCl 180 mg capsule,extended release 24hr 180 mg PO DAILY Qty: 30 0RF furosemide [Lasix] 20 mg tablet 10 mg PO Q OTHER DAY Qty: 20 0RF Continued budesonide-formoterol [Symbicort] 160-4.5 mcg/actuation HFA aerosol inhaler 2 puff inhalation BID montelukast 10 mg tablet 10 mg PO QPM doxepin 25 mg Capsule 25 mg PO HS albuterol sulfate 90 mcg/actuation Aero Powdr Breath Act W/Sensor 2 inh INHALATION Q4H PRN (Reason: sob) multivitamin Tablet 0 tab PO DAILY Rx Instructions: Patient states that due to his potassium being high he takes 1 tablet by mouth a couple times a week. lisinopril 20 mg tablet 20 mg PO QAM cephalexin 500 mg capsule 500 mg PO BID Metamucil Packet 1 packet PO DAILY PRN (Reason: Constipation) Rx Instructions: mix into at least 8 oz of water or juice before administering Discontinued diltiazem HCl 300 mg capsule,extended release 24hr 300 mg PO DAILY Discharge Orders: Discharge Order (Routine); Ordered 08/20/22 Ordered By: Lucien Andrews Admission Data Admit Date/Time: 08/18/22 18:05 Attending Provider: Knab,Lucien F. Admit Provider: Jodie Brian Primary Care Provider: Aundrea Crowley Other Providers: Aure Flores ; Jodie Brian ; Becky Meza
== END 2022-08-20 13:58 | disposition home or self-care (01) | DRG 645 ==
LOC: ED 14:05 → 2N 18:05 → SUATTDRO 18:05 → 2N 20:17